=== PATIENT | female | born 2000 | race Caucasian/White ===

== ENCOUNTER 2019-02-11 16:43 | Observation (INO) ==
--- NOTE | 2019-02-11 17:30 | Emergency Department Note ---
Disposition Clinical Impression: Altered mental status Qualifiers: Altered mental status type: unspecified Qualified Code(s): R41.82 - Altered mental status, unspecified Disposition: Admitted As Inpatient Condition: Good Time of Disposition: 21:53 Neuro HPI - General Chief Complaint: ED Neuro Symptoms/Deficit Stated Complaint: Neuro symptoms LKN 1620 Time Seen by Provider: 02/11/19 16:56 Source: patient Mode of arrival: other Limitations: no limitations Nursing Notes Reviewed: Yes Vital Signs Reviewed: Yes - History of Present Illness HPI Narrative: 18F states that she was at work at approx 1630 and states that she felt like she was having word finding difficulty and could not get her words out. She is also complaining of decreased sensation on the right side of her face, her right side of her body. She also complains of right arm and leg weakness. She states that she can follow commands, but will take several seconds to follow commands. She can answer questions but sometimes it takes multiple prompts. Additionally, there are times when she can talk normally without any hesitation. She reported to the numerical analysis group manager that she is "extremely stressed" and that her whole life is "nothing but stress." She also reported constant diarrhea. - Related Data Home Medications: Home Medications Medication Instructions Recorded Confirmed Nexplanon 01/07/18 Sertraline [Zoloft] 100 mg PO DAILY 01/07/18 02/11/19 Phentermine HCl [Adipex-P] 37.5 mg PO DAILY 02/11/19 02/11/19 Previous Rx's Medication Instructions Recorded Meclizine HCl [Bonine] 25 mg PO Q8H PRN #21 tab.chew 02/05/18 Allergies/Adverse Reactions: Allergies Allergy/AdvReac Type Severity Reaction Status Date / Time No Known Allergies Allergy Verified 02/11/19 20:18 Limitations: ROS unobtainable due to patients medical condition Past Medical History - Past Medical History Medical history: Reports: asthma Surgical history: Reports: other Psychiatric history: Reports: anxiety, depression COMMERCIAL OR INSTITUTIONAL CLEANER history: Reports: no COMMERCIAL OR INSTITUTIONAL CLEANER history - Social History Smoking Status: Never smoker Smokeless Tobacco Status: No Alcohol use: Reports: none Drug use: Reports: none Physical Exam General: Pt appears anxious and tearful. She can sometimes converse freely and other times has halting speech. Head: atraumatic, normocephalic. ENT: No conjunctival injection, no scleral icterus. PERRLA. EOMI. Oropharynx non- erythematous. mucous membranes moist. Neuro: Pt reports decreased right sided facial sensation, decreased right arm and leg sensation. She cannot keep her right arm lifted, cannot keep her right arm lifted. Her pupils are equal and reactive. She cannot follow my finger. She can read words off my phone screen. She can repeat some words after me with multiple prompts. Initial NIH 6. Pulm: Lungs CTAB A/P. No wheezes, rales, ronchi. Cardio: RRR no m/r/g. Chest not tender to palpation. Abd: Soft, non-distended. Normoactive bowel sounds. Non-tender to palpation. No guarding. Non rigid. Extremities: Radial pulses 2+ andreas, dorsalis pedis/posterior tibialis 2+ andreas. No LE edema. No cyanosis, clubbing. Skin: warm, dry, intact. No rashes. Psych: Appears anxious. Unable to assess the rest of her mental status as she is difficult to communicate with. - General Limitations: no limitations General appearance: alert Course - Consultations Consultation #1: Radiologist states CT head is negative for acute bleed. Time: 17:27 Consultation #2: Spoke with Dr. Noel from [facility] that reports he does not think this is a stroke, thinks it is more stress related. He still recommended CTA of her head. Will order. Cancelled stroke alert. Time: 17:58 Vital Signs Temperature 98.7 F 02/11/19 16:49 Pulse Rate 84 02/11/19 16:49 Respiratory Rate 16 02/11/19 16:49 Blood Pressure 142/86 02/11/19 16:49 O2 Sat by Pulse Oximetry 100 02/11/19 16:49 Temperature 98.7 F 02/11/19 16:54 Pulse Rate 75 02/11/19 21:31 Respiratory Rate 19 02/11/19 21:31 Blood Pressure 123/84 02/11/19 21:31 O2 Sat by Pulse Oximetry 98 02/11/19 21:31 Oxygen Delivery Oxygen Delivery Room Air Neuro Symptoms/Deficit - MDM Narrative Medical decision making narrative: 18F with Pmhx of anxiety/depression that reports being at work and suddenly feeling like she could not get her words out at around 1600 today. She is having difficulty speaking intermittently, but then can speak in full sentences without difficulty. When you ask her to do something, she will pause for a long time - sometimes up to a minute - and will then be able to do whatever is asked of her. She will even say "Hold on". Stroke alert was called in order to expedite the workup and for concern of possible stroke given initial NIH of 6. Stroke alert was then cancelled after [facility] states that they think this may be related to stress, but recommended a CTA and full neuro workup. Will admit to hospitalist once CTA of Head/Neck is available. 2151: CTA of head/neck did not show any acute intracranial findings. Pt was admitted to the hospitalist for further workup of her neurological complaint. Dr. Beard accepted the patient to his service. Results of the workup including any imaging and/or labwork was shared with the patient at bedside. Patient was given an opportunity to ask questions at bedside and all of their concerns were addressed. Patient verbalized understanding and agreement with plan of care. Pt remained stable while in the department. - Medical Records Medical records reviewed: Yes I reviewed the patient's medical records. - Lab Data Lab results reviewed: Yes I reviewed the patient's lab results. Result diagrams: 02/11/19 17:19 02/12/19 06:55 Lab Results 02/11/19 02/11/19 02/11/19 Range/Units 17:19 17:19 17:19 WBC 7.9 (4.3-11.1) K/mcL RBC 4.43 (3.82-4.97) M/mcL Hgb 13.4 (11.5-15.4) g/dL Hct 39.1 (35.3-44.9) % MCV 88.3 (83.0-100.0) fL MCH 30.2 (28.0-33.3) pg MCHC 34.3 (31.6-35.5) g/dL RDW 12.0 (11.5-14.5) % Plt Count 219 (140-400) K/mcL MPV 9.9 (9.4-12.4) fL PT 11.7 (9.4-12.1) Seconds INR 1.0 APTT 32.8 (26.0-36.0) Seconds Sodium 138 (136-145) mEq/L Potassium 3.7 (3.5-5.1) mEq/L Chloride 103 (98-107) mEq/L Carbon Dioxide 23 (23-29) mEq/L BUN 10 (6-20) mg/dL Creatinine 0.76 (0.60-1.20) mg/dL Est GFR ( Amer) > 60 (> 60) Est GFR (Non-Af Amer) > 60 (> 60) BUN/Creatinine Ratio 13 (6-26) Glucose 97 (70-105) mg/dL Calculated Osmolality 285 (280-300) Calcium 9.8 (8.6-10.3) mg/dL Troponin I < 0.03 (< 0.04) ng/mL Urine Color (Yellow) Urine Clarity (Clear) Urine pH (5.0-8.0) pH Units Ur Specific [place] (1.010-1.025) Urine Protein (Neg-Trace) mg/dL Urine Glucose (UA) (Normal) mg/dL Urine Ketones (Negative) mg/dL Urine Blood (Negative) Urine Nitrite (Negative) Urine Bilirubin (Negative) Urine Urobilinogen (Normal) mg/dL Ur Leukocyte Esterase (Negative) Urine Microscopic RBC (0-3) per hpf Urine Microscopic WBC (0-3) per hpf Ur Squamous Epith Cells (None-Few) per lpf Urine Bacteria (None-Few) per hpf Hyaline Casts (None-Few) per lpf Ur Culture Indicated? (NO) Urine Test (Negative) Salicylates < 2.5 L (15.0-30.0) mg/dL Urine Opiates Screen (Qnvflh=422) ng/mL Ur Buprenorphine Scrn (Cutoff=5) ng/mL Acetaminophen < 10 L (10-20) mcg/mL Ur Barbiturates Screen (Welazo=584) ng/mL Ur Phencyclidine Scrn (Cutoff=25) ng/mL Ur Amphetamines Screen (Sfifdo=2338) ng/mL U Benzodiazepines Scrn (Lhjwvm=302) ng/mL Urine Cocaine Screen (Cutoff= 300) ng/mL U Marijuana (THC) Screen (Cutoff = 50) ng/mL Ur Drug Screen Interp Ethyl Alcohol < 10 (Less than 10) mg/dL 02/11/19 02/11/19 02/11/19 Range/Units 18:46 18:47 18:47 WBC (4.3-11.1) K/mcL RBC (3.82-4.97) M/mcL Hgb (11.5-15.4) g/dL Hct (35.3-44.9) % MCV (83.0-100.0) fL MCH (28.0-33.3) pg MCHC (31.6-35.5) g/dL RDW (11.5-14.5) % Plt Count (140-400) K/mcL MPV (9.4-12.4) fL PT (9.4-12.1) Seconds INR APTT (26.0-36.0) Seconds Sodium (136-145) mEq/L Potassium (3.5-5.1) mEq/L Chloride (98-107) mEq/L Carbon Dioxide (23-29) mEq/L BUN (6-20) mg/dL Creatinine (0.60-1.20) mg/dL Est GFR ( Amer) (> 60) Est GFR (Non-Af Amer) (> 60) BUN/Creatinine Ratio (6-26) Glucose (70-105) mg/dL Calculated Osmolality (280-300) Calcium (8.6-10.3) mg/dL Troponin I (< 0.04) ng/mL Urine Color Yellow (Yellow) Urine Clarity Slightly Hazy (Clear) Urine pH 6.0 (5.0-8.0) pH Units Ur Specific [place] 1.012 (1.010-1.025) Urine Protein Negative (Neg-Trace) mg/dL Urine Glucose (UA) Normal (Normal) mg/dL Urine Ketones Negative (Negative) mg/dL Urine Blood Small H (Negative) Urine Nitrite Negative (Negative) Urine Bilirubin Negative (Negative) Urine Urobilinogen Normal (Normal) mg/dL Ur Leukocyte Esterase Small H (Negative) Urine Microscopic RBC 5-15 H (0-3) per hpf Urine Microscopic WBC 5-15 H (0-3) per hpf Ur Squamous Epith Cells Many H (None-Few) per lpf Urine Bacteria None Seen (None-Few) per hpf Hyaline Casts None Seen (None-Few) per lpf Ur Culture Indicated? YES A (NO) Urine Test Negative (Negative) Salicylates (15.0-30.0) mg/dL Urine Opiates Screen Negative (Tyiyef=856) ng/mL Ur Buprenorphine Scrn Negative (Cutoff=5) ng/mL Acetaminophen (10-20) mcg/mL Ur Barbiturates Screen Negative (Nsydsd=707) ng/mL Ur Phencyclidine Scrn Negative (Cutoff=25) ng/mL Ur Amphetamines Screen Positive H (Yjkuao=4484) ng/mL U Benzodiazepines Scrn Negative (Vskwxk=045) ng/mL Urine Cocaine Screen Negative (Cutoff= 300) ng/mL U Marijuana (THC) Screen Negative (Cutoff = 50) ng/mL Ur Drug Screen Interp See Below Ethyl Alcohol (Less than 10) mg/dL - Radiology Data Radiology results reviewed: Yes I reviewed the patient's radiology results. Head CT 02/11/19 17:10 IMPRESSION: No acute intracranial abnormality. Results of this examination were verbally communicated to Latesha Zurita at 5:29 p.m. on 02/11/2019. D/ / Wander Cobos MD / Wander Cobos MD Interpreting Provider: aWnder Cobos MD Head CTA 02/11/19 17:56 IMPRESSION: Negative for hemodynamic stenosis or occlusion involving the cervical arterial vasculature or the intracranial arterial circulation.. D/ / Joaquin Kulkarni / Joaquin Kulkarni Interpreting Provider: Joaquin Kulkarni Neck CTA 02/11/19 17:56 IMPRESSION: Negative for hemodynamic stenosis or occlusion involving the cervical arterial vasculature or the intracranial arterial circulation.. D/ / Joaquin Kulkarni / Joaquin Kulkarni Interpreting Provider: Joaquin Kulkarni - EKG Data EKG attestation: Yes I reviewed and interpreted this EKG. EKG results narrative: Heart rate 79, rhythm sinus, axis normal. Intervals within normal limits. RSR pattern seen in lead V1 and V2 without prolongation of the QRS. No ST segment elevation or depression. No old EKG available for comparison. NIH Stroke Scale - Level of Consciousness LOC: Alert - LOC Questions LOC Questions: Answers both correctly - LOC Commands LOC Commands: Performs both correctly - Best Gaze Best Gaze: Normal - Visual Visual: No visual loss - Facial Palsy Facial Palsy: Normal - Motor Arms Motor Arm-Left: No drift for 10 seconds Motor Arm-Right: Some effort against gravity, limb drifts to bed - Motor Legs Motor Leg-Left: No drift for 5 seconds Motor Leg-Right: No effort against gravity, limb falls to bed, some movement - Limb Ataxia Limb Ataxia: Absent of affected limb too weak to perform exam - Sensory Sensory: Mild to moderate loss, "not as sharp" - Best Language Best Language: No aphasia - Dysarthria Dysarthria: Normal - Extinction and Inattention Extinction and Inattention: Normal - NIHSS Total Score NIHSS Total Score: 6 TPA Checklist - LKW: 3-4.5 hrs Add. Warnings/Precautions Patient/family understanding: The patient/family members have been counseled and understood the risk, benefit, and alternatives of treatment. Attestation Statement - Attestation Attestation: I, Leif Santos, examined this patient and my medical decision-making was reviewed with the [employer]/PA/Advanced Practice Nurse/Resident Physician. I agree with the documented findings, disposition and treatment plan as described except to the extent set forth below. 18-year-old female brought to the emergency department for evaluation of possible CVA. Patient states she has difficulty with her speech and has weakness of the right upper and right lower extremity. Patient states symptoms started about 20-30 minutes prior to arrival. Patient denies illicit drug use, alcohol use or recent trauma. No history of seizure disorder. On initial physical exam the patient is very anxious and dramatic when giving the history. At times she has difficulty finding words during the interview but at other she was able to speak clearly and without hesitation. Patient has 4 out of 5 weakness of the right upper extremity compared to the left. Patient was unable to move the right lower extremity to gravity however I have concerns that there is a lack of effort during the exam as she did not have pressure to the contralateral heel to the bed during the exam. A stroke alert was initiated, CT of the head was negative, [facility] did not recommend TPA. Patient will be admitted to the hospital for further care and evaluation.
[2019-02-11 17:44] LABS: Hematocrit 39.1 % (35.3-44.9); Hemoglobin 13.4 g/dL (11.5-15.4); Mean Corpuscular HGB Conc 34.3 g/dL (31.6-35.5); Mean Corpuscular Hemoglobin 30.2 pg (28.0-33.3); Mean Corpuscular Volume 88.3 fL (83.0-100.0); Mean Platelet Volume 9.9 fL (9.4-12.4); Platelet Count 219 K/mcL (140-400); Red Blood Count 4.43 M/mcL (3.82-4.97); White Blood Count 7.9 K/mcL (4.3-11.1)
[2019-02-11 17:46] LABS: Prothrombin Time 11.7 Seconds (9.4-12.1)
[2019-02-11 17:49] LABS: Activated Partial Thrombo Time 32.8 Seconds (26.0-36.0)
[2019-02-11] MEDS ORDERED: Isovue-370 500 ML BOTTLE IVP ONE (17:56)
[2019-02-11 18:03] LABS: BUN/Creatinine Ratio 13 (6-26); Blood Urea Nitrogen 10 mg/dL (6-20); Calcium 9.8 mg/dL (8.6-10.3); Carbon Dioxide 23 mEq/L (23-29); Chloride 103 mEq/L (98-107); Ethanol < 10 mg/dL (Less than 10); Glucose 97 mg/dL (70-105); Osmolality,Calculated 285 (280-300); Potassium 3.7 mEq/L (3.5-5.1); Sodium 138 mEq/L (136-145); Troponin I < 0.03 ng/mL (< 0.04); eGFR For African Americans > 60 (> 60); eGFR For Non-African Americans > 60 (> 60)
[2019-02-11 18:16] LABS: Acetaminophen < 10 mcg/mL (10-20); Salicylate < 2.5 mg/dL (15.0-30.0)
[2019-02-11 19:00] LABS: Bilirubin,Urine Negative (Negative); Blood,Urine Small (Negative); Color,Urine Yellow (Yellow); Glucose,Urine (UA) Normal (Normal); Ketones,Urine Negative (Negative); Leukocyte Esterase,Urine Small (Negative); Nitrite,Urine Negative (Negative); Protein,Urine Negative (Neg-Trace); Specific Gravity,Urine 1.012 (1.010-1.025); Urobilinogen,Urine Normal (Normal)
[2019-02-11 19:01] LABS: Bacteria,Urine None Seen per hpf (None-Few); Hyaline Casts,Urine None Seen per lpf (None-Few); Squamous Epithelial Cell,Urine Many per lpf (None-Few)
[2019-02-11 19:06] LABS: Clarity,Urine Slightly Hazy (Clear)
[2019-02-11 19:15] LABS: Amphetamine Screen,Urine Positive ng/mL (Cutoff=1000); Barbiturate Screen,Urine Negative ng/mL (Cutoff=200); Benzodiazepines Screen,Urine Negative ng/mL (Cutoff=200); Cannabinoid Screen,Urine Negative ng/mL (Cutoff = 50); Cocaine Screen,Urine Negative ng/mL (Cutoff= 300); Opiate Screen,Urine Negative ng/mL (Cutoff=300); Phencyclidine Screen,Urine Negative ng/mL (Cutoff=25)
--- NOTE | 2019-02-11 22:13 | Internal Med History&Physical ---
Date of Encounter: 02/12/19 Time of Encounter: 22:13 Internal Medicine - H&P: HPI Chief complaint: Stroke - like Sx History of present illness: Ms. Archer is a 18 year old female with a past medical history of asthma, anxiety and depression who presented to the ED because of strokelike symptoms. 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 She states that around 4:30 this afternoon she was starting to feel weak and lightheaded. She noticed some tingling in her hands. She initially thought that her blood sugar may have been low and stopped to eat a snack. She walked into the nurses station and states that she "zoned out" and could not speak when one of the nurses was asking if she was okay, despite being able to hear her. She was ta stephanie down to the ED and shortly thereafter began having difficulty moving her right upper and lower extremities which she states felt heavy. Patient subsequently developed a headache which was predominantly left-sided. Headache appear to be aggravated by light and loud noises. She reports she has a history of migraines, however stated that this presentation was different. She reported to the operations support representative that she is "extremely stressed" and that her whole life is "nothing but stress." She also reported constant diarrhea but states that this has been chronic. No reports of neck stiffness or blurry vision. Denied chest pain or shortness of breath. Denies any drug use. No reports of recent illness. Based on a initial NIH of 6, stroke alert was called and then canceled shortly after neurology evaluated the patient and felt symptoms were more likely related to stress. CTA of the head and neck and further workup was recommended. CTA showed no acute intracranial findings. Initial vitals and laboratory workup were unremarkable. Urine toxicology were positive for amphetamines. When tyler clinton was asked about this, she was adamant that she does not use any other drugs aside from her prescription medications. Patient admitted for further evaluation and stroke rule out. Past Med Surg Social Fam HX - Past Medical History Medical history: asthma Psychiatric history: anxiety, depression - Past Surgical History Surgical History: other Additional surgical history: right side of neck lymph node biopsy - Social History Smoking Status: Never smoker Smokeless Tobacco Status: No Alcohol use: none Drug use: none - Family History Mother Hx Family Cancer: Yes (kidney ca) Father Hx Family Endocrine Disorder: Yes (dm) Internal Medicine - H&P: Meds Etonogestrel [Nexplanon] 68 mg ONCE 01/07/18 [History] Sertraline [Zoloft] 100 mg PO DAILY 01/07/18 [History] Meclizine HCl [Bonine] 25 mg PO Q8H PRN #21 tab.chew 02/05/18 [Rx] Phentermine HCl [Adipex-P] 37.5 mg PO DAILY 02/11/19 [History] Allergy/AdvReac Type Severity Reaction Status Date / Time No Known Allergies Allergy Verified 02/11/19 20:18 All Systems PM: A 10-system review of systems was performed and is negative for pertinent findings except as documented above in the HPI. - Constitutional Constitutional: no chills, no fever(s), no night sweats - EENT Eyes: no change in vision, no discharge, no pain, no photophobia Ears: no ear discharge, no ear pain, no tinnitus Nose, mouth and throat: no dysphagia, no nasal discharge, no neck pain, no sore throat - Cardiovascular Cardiovascular ROS IM: no chest pain, no diaphoresis, no dyspnea, no lightheadedness, no palpitations, no syncope - Respiratory Respiratory: no cough, no dyspnea, no wheezing, no excessive phlegm production - Gastrointestinal Gastrointestinal: no abdominal pain, no diarrhea, no hematemesis, no hematochezia, no melena, no nausea, no vomiting - Genitourinary Genitourinary: no change in urinary stream, no dysuria, no flank pain, no hematuria - Musculoskeletal Musculoskeletal ROS IM: no numbness, no tingling - Integumentary Integumentary IM: no rash, no unusual bruising - Neurological Neurological ROS: no confusion, no convulsions, no focal weakness, no numbness, no tingling, no tremor(s) - Hematologic/Lymphatic Hematologic/Lymphatic: no easy bruising - Constitutional Vitals: Temp Pulse Resp BP Pulse Ox 98.7 F 75 19 123/84 98 02/11/19 16:54 02/11/19 21:31 02/11/19 21:31 02/11/19 21:31 02/11/19 21:31 Exam: General: Alert and oriented 3 Skin:Normal color, no rash, no lesions. HEENT:EOM, pupils equal, round and reactive. Cardiovascular:Normal S1 & S2, no rubs, murmurs or gallops. No JVD. Pulse regular. Lungs:Normal breath sounds, no wheezes or crackles. Abdomen:Soft, non-tender, no rigidity. Extremities:No deformity, no edema or tenderness, no joint swelling or clubbing. Neurological:Normal cognition and motor skills. Cranial nerves II through XII intact. Mild right-sided pronator drift. Muscle strength 4 out of 5 on the right in the upper or lower extremities; 5 out of 5 in the upper and lower extremities on the left Pulses:Carotid and radial pulses normal +2. Rest of the physical exam is non contributory Internal Med - H&P Results - Labs CBC & Chem 7: 02/11/19 17:19 02/12/19 06:55 Labs: Short CBC 02/11/19 Range/Units 17:19 WBC 7.9 (4.3-11.1) K/mcL Hgb 13.4 (11.5-15.4) g/dL Hct 39.1 (35.3-44.9) % Plt Count 219 (140-400) K/mcL BMP 02/11/19 17:19 Sodium 138 Potassium 3.7 Chloride 103 Carbon Dioxide 23 BUN 10 Creatinine 0.76 Glucose 97 Calcium 9.8 Cardiac Enzymes 02/11/19 Range/Units 17:19 Troponin I < 0.03 (< 0.04) ng/mL Urine 02/11/19 Range/Units 18:46 Urine Color Yellow (Yellow) Urine Clarity Slightly Hazy (Clear) Urine pH 6.0 (5.0-8.0) pH Units Ur Specific [place] 1.012 (1.010-1.025) Urine Protein Negative (Neg-Trace) mg/dL Urine Glucose (UA) Normal (Normal) mg/dL - Impressions ITS Impressions Head CT 02/11/19 17:10 IMPRESSION: No acute intracranial abnormality. Results of this examination were verbally communicated to Latesha Zurita at 5:29 p.m. on 02/11/2019. D/ / Wander Cobos MD / Wander Cobos MD Interpreting Provider: Wander Cobos MD Head CTA 02/11/19 17:56 IMPRESSION: Negative for hemodynamic stenosis or occlusion involving the cervical arterial vasculature or the intracranial arterial circulation.. D/ / Joaquin Kulkarni / Joaquin Kulkarni Interpreting Provider: Joaquin Kulkarni Neck CTA 02/11/19 17:56 IMPRESSION: Negative for hemodynamic stenosis or occlusion involving the cervical arterial vasculature or the intracranial arterial circulation.. D/ / Joaquin Kulkarni / Joaquin Kulkarni Interpreting Provider: Joaquin Kulkarni - Assessment and Plan (1) Stroke-like symptoms Current Visit: Yes Status: Acute Assessment and plan: 18-year-old female with past medical history of anxiety and migraine presenting with strokelike symptoms exhibited by aphasia and right upper and lower extremity weakness. -Vitals and laboratory workup unremarkable; no evidence of fever, leukocytosis. -patient did have right upper lower extremity weakness on physical exam relative to her left -Patient urine toxicology positive for amphetamines though patient adamantly denies any illicit drug use and question as to whether this could be secondary to her phentermine which she takes her weight loss. -CT of the head and neck was unremarkable -Low likelihood for CVA; given migraine history may be secondary to complex migraine versus stress. MS may be another possibility Plan: -Telemetry -Neurochecks -Lipid panel; A1c -One-time dose of aspirin -MRI in the a.m. -Consider Neurology consult (2) Anxiety Current Visit: Yes Status: Acute Assessment and plan: Patient reporting she has been under a lot of stress recently. (3) Depression Current Visit: Yes Status: Acute Assessment and plan: Continue sertraline Qualifiers: Depression Type: unspecified Qualified Code(s): F32.9 - Major depressive disorder, single episode, unspecified - Time Spent With Patient Total time spent is greater than 50% in coordination of care (as documented) at patient's floor/unit and/or counseling patient:
[2019-02-12] MEDS: traMADol 50 MG TABLET PO PRN ×2 (00:28→08:09)
[2019-02-12] MEDS ORDERED: 0.9 % Sodium Chloride 1,000 ML IVC SCH (05:45)
[2019-02-12 07:24] LABS: Alanine Aminotransferase 14 Units/L (7-52); Albumin 4.2 g/dL (3.5-5.7); Albumin/Globulin Ratio 1.8 (1.1-2.2); Alkaline Phosphatase 57 Units/L (34-104); Aspartate Amino Transferase 11 Units/L (13-39); BUN/Creatinine Ratio 12 (6-26); Bilirubin,Total 0.7 mg/dL (0.3-1.0); Blood Urea Nitrogen 8 mg/dL (6-20); Calcium 9.2 mg/dL (8.6-10.3); Carbon Dioxide 26 mEq/L (23-29); Chloride 104 mEq/L (98-107); Chol/HDL Ratio 3.9 (0-4.9); Cholesterol 158 mg/dL (< 200); Globulin 2.3 g/dL (2.4-3.5); Glucose 99 mg/dL (70-105); HDL Cholesterol 41 mg/dL (40-59); LDL Cholesterol,Calculated 104 mg/dL (0-99); Osmolality,Calculated 286 (280-300); Potassium 3.8 mEq/L (3.5-5.1); Sodium 139 mEq/L (136-145); Total Protein 6.5 g/dL (6.4-8.9); Triglycerides 66 mg/dL (< 150); eGFR For African Americans > 60 (> 60); eGFR For Non-African Americans > 60 (> 60)
[2019-02-12] MEDS ORDERED: Aspirin 325 MG TABLET PO ONE (07:59)
[2019-02-12 08:09] LABS: Estimated Average Glucose 108 mg/dl
[2019-02-12] MEDS ORDERED: Ketorolac 15 MG/ML VIAL IVP ONE (09:06)
[2019-02-12] MEDS ORDERED: Promethazine 12.5 MG in 0.9 % Sodium Chloride 50 ML IVPB PRN ×2 (09:06→09:34)
[2019-02-12] MEDS ORDERED: Prochlorperazine 10 MG/2 ML VIAL IVP ONE (09:06)
[2019-02-12] MEDS ORDERED: Ketorolac 15 MG/ML VIAL IVP PRN (09:07)
--- NOTE | 2019-02-12 11:25 | Neurology - Consult Note ---
Date of Encounter: 02/12/19 Time of Encounter: 11:23 Assessment and Plan (1) Altered mental status Current Visit: Yes Status: Acute I agree that this is likely not related to a primary HEAD OF MARKETING ADOMETRY pathology. There may be a component of migraine headache that can be aggravated by increasing stress. She currently has nonfocal neurological examination and imaging studies are essentially normal studies including CT angiogram of the neck and head as well as MRI of the brain and cervical spine. Patient may benefit from counseling regarding her increasing stress as an outpatient basis. From a neurology perspective, patient can be discharged home. We will sign off at this time please call if any questions. Qualifiers: Altered mental status type: unspecified Qualified Code(s): R41.82 - Altered mental status, unspecified History of Present Illness Chief complaint: altered mental status HPI: Ms. Archer is a 18 year old female with a past medical history significant for anxiety depression, obesity, mild intermittent asthma who developed an episode of altered mental status followed by headaches. Patient admits to significant stress surrounding her personal life and her work. Patient developed altered mental status at work followed by a throbbing headache. Initially she reported lightheadedness, numbness tingling involving her hands bilaterally and then an episode where she could hear but not able to talk. Patient was able to maintain her posture during the spell. This was followed by a headache. Patient does have history of intermittent migraine headaches but usually not associated with current symptoms. Initial CT of the head showed no acute intracranial abnormality. At the time of this interview, the patient just completed MRI of the brain and the cervical spine. She states that she feels extremely tired however, no other focal neurological deficits were noted. MRI of the brain and cervical spine images are reviewed and no significant abnormality identified. Past Med Surg Social Fam HX - Past Medical History Medical history: asthma Psychiatric history: anxiety, depression - Past Surgical History Surgical History: other Additional surgical history: right side of neck lymph node biopsy - Social History Smoking Status: Never smoker Smokeless Tobacco Status: No Alcohol use: none Drug use: none - Family History Mother Hx Family Cancer: Yes (kidney ca) Father Hx Family Endocrine Disorder: Yes (dm) Medications and Allergies Nexplanon 01/07/18 [History] Sertraline [Zoloft] 100 mg PO DAILY 01/07/18 [History] Meclizine HCl [Bonine] 25 mg PO Q8H PRN #21 tab.chew 02/05/18 [Rx] Phentermine HCl [Adipex-P] 37.5 mg PO DAILY 02/11/19 [History] Allergy/AdvReac Type Severity Reaction Status Date / Time No Known Allergies Allergy Verified 02/11/19 20:18 All Systems: The remainder of the systems were reviewed and are negative - Constitutional Constitutional ROS IM: as per HPI - Nose, Mouth, Throat Nose, mouth and throat: abnormal hearing (no), bleeding gums (no), change in voice (no) - Cardiovascular Cardiovascular ROS IM: chest pain (no), chest pain at rest (no) - Respiratory Respiratory IM: cough (no), dyspnea (no), hemoptysis (no) - Gastrointestinal Gastrointestinal: abdominal pain (no), belching (no), bloating (no), change in bowel habits (no) - Genitourinary Genitourinary ROS: abnormal meses (no), abnormal vaginal bleeding (no) - Musculoskeletal Musculoskeletal ROS IM: abnormal gait (no) - Neurological Neurological ROS: abnormal gait (no), abnormal hearing (no), abnormal movements (no), abnormal speech (no), confusion (yes), headache(s) (yes) - Psychiatric Psychiatric general PM: abnormal sleep pattern (no), anhedonia (no), auditory hallucinations (no), confusion (yes) - Endocrine Endocrine IM: change in body appearance (no) Physical Examination - Vital Signs Vital Signs: Initial Vital Signs Temp Pulse Resp BP Pulse Ox 98.7 F 84 16 142/86 100 02/11/19 16:49 02/11/19 16:49 02/11/19 16:49 02/11/19 16:49 02/11/19 16:49 Results - Laboratory Findings CBC and BMP: 02/11/19 17:19 02/12/19 06:55 Abnormal lab findings: Abnormal lab results AST 11 Units/L (13-39) L 02/12/19 06:55 Globulin 2.3 g/dL (2.4-3.5) L 02/12/19 06:55 LDL Cholesterol, Calc 104 mg/dL (0-99) H 02/12/19 06:55 Urine Blood Small (Negative) H 02/11/19 18:46 Ur Leukocyte Esterase Small (Negative) H 02/11/19 18:46 Urine Microscopic RBC 5-15 per hpf (0-3) H 02/11/19 18:46 Urine Microscopic WBC 5-15 per hpf (0-3) H 02/11/19 18:46 Ur Squamous Epith Cells Many per lpf (None-Few) H 02/11/19 18:46 Ur Culture Indicated? YES (NO) A 02/11/19 18:46 Salicylates < 2.5 mg/dL (15.0-30.0) L 02/11/19 17:19 Acetaminophen < 10 mcg/mL (10-20) L 02/11/19 17:19 Ur Amphetamines Screen Positive ng/mL (Iwvorh=[id number]) H 02/11/19 18:47 - Diagnostic Findings Additional findings: CT OF THE HEAD WITHOUT CONTRAST - STROKE ALERT 02/11/2019 5:25 pm TECHNIQUE: CT of the head was performed without the administration of intravenous contrast. Dose modulation, iterative reconstruction, and/or weight based adjustment of the mA/kV was utilized to reduce the radiation dose to as low as reasonably achievable. COMPARISON: 07/25/2017 HISTORY: ORDERING SYSTEM PROVIDED HISTORY: stroke alert Difficulty with speech and right-sided weakness. Acute symptoms. Initial study. FINDINGS: BRAIN/VENTRICLES: There is no acute intracranial hemorrhage, mass effect or midline shift. No abnormal extra-axial fluid collection. The dixon-white differentiation is maintained without evidence of an acute infarct. There is no evidence of hydrocephalus. ORBITS: The visualized portion of the orbits demonstrate no acute abnormality. SINUSES: The visualized paranasal sinuses and mastoid air cells demonstrate no acute abnormality. SOFT TISSUES/SKULL: No acute abnormality of the visualized skull or soft tissues. CT/CT stroke alert head wo con IMPRESSION: No acute intracranial abnormality. Results of this examination were verbally communicated to Latesha Zurita at 5:29 p.m. on 02/11/2019. D/ / Wander Cobos MD / Wander Cobos MD Interpreting Provider: Wander Cobos MD OF THE HEAD WITHOUT AND WITH CONTRAST; CTA OF THE NECK 02/11/2019 7:41 pm; 02/11/2019 7:43 pm: TECHNIQUE: CTA of the head/brain was performed without and with the administration of intravenous contrast. Multiplanar reformatted images are provided for review. MIP images are provided for review. Dose modulation, iterative reconstruction, and/or weight based adjustment of the mA/kV was utilized to reduce the radiation dose to as low as reasonably achievable.; CTA of the neck was performed with the administration of intravenous contrast. Multiplanar reformatted images are provided for review. MIP images are provided for review. Stenosis of the internal carotid arteries measured using NASCET criteria. Dose modulation, iterative reconstruction, and/or weight based adjustment of the mA/kV was utilized to reduce the radiation dose to as low as reasonably achievable. COMPARISON: CT head 02/11/2019 HISTORY: ORDERING SYSTEM PROVIDED HISTORY: sudden onset neuro deficits with neg CT W/O 75 ml of isovue 370 ; ORDERING SYSTEM PROVIDED HISTORY: STROKE LIKE SYMPTOMS 75 ml of isovue 370 FINDINGS: CTA NECK: AORTIC ARCH/ARCH VESSELS: There is a normal branch pattern of the aortic arch. No significant stenosis is seen of the innominate artery or subclavian arteries. CAROTID ARTERIES: The common carotid arteries are normal in appearance without evidence of a flow limiting stenosis. The internal carotid arteries are normal in appearance without evidence of a flow limiting stenosis by NASCET criteria. No dissection or arterial injury is seen. VERTEBRAL ARTERIES: The vertebral arteries both arise from the subclavian arteries and are normal in caliber without evidence of flow limiting stenosis or dissection. SOFT TISSUES: The lung apices are clear. No cervical or superior mediastinal lymphadenopathy. The visualized portion of the larynx and pharynx appear unremarkable. The parotid, submandibular and thyroid glands demonstrate no acute abnormality. BONES: The visualized osseous structures appear unremarkable. CTA HEAD: ANTERIOR CIRCULATION: The internal carotid arteries are normal in course and caliber without focal stenosis. The anterior cerebral and middle cerebral arteries demonstrate no focal stenosis. POSTERIOR CIRCULATION: The posterior cerebral arteries demonstrate no focal stenosis. The vertebral and basilar arteries appear unremarkable. BRAIN: No mass effect or midline shift. No abnormal extra-axial fluid collection. The dixon-white differentiation appears grossly maintained. CT/CT angio head IMPRESSION: Negative for hemodynamic stenosis or occlusion involving the cervical arterial vasculature or the intracranial arterial circulation.. D/ / Joaquin Kulkarni / Joaquin Kulkarni Interpreting Provider: Joaquin Kulkarni Consult Discharge Plan - Plan Referrals: NONE,PCP [Primary Care Provider] -
--- NOTE | 2019-02-12 12:21 | Internal Med Progress Note ---
Hospitalist Progress Note - Encounter Date of Encounter: 02/12/19 Time of Encounter: 09:00 - Subjective Interval History: No acute events overnight - Exam Vitals: Temp Pulse Resp BP Pulse Ox 98.0 F 82 16 127/85 100 02/12/19 07:20 02/12/19 09:03 02/12/19 09:03 02/12/19 09:03 02/12/19 09:03 Exam: General appearance: Present: A&O X 3, no acute distress Head exam: Present: normocephalic Respiratory exam: Present: CTAB. Absent: accessory muscle use, rales, rhonchi, wheezes Cardiovascular exam: Present: RRR, +S1, +S2. Absent: diastolic murmur, gallop, rubs, systolic murmur GI/Abdominal exam: Soft, NT, ND, +BS Extremities exam: Absent: pedal edema Neurological exam: Demonstrates subjective right sided weaknes. Unclear if symptoms are real based on prior observation of her using her extremities per nursing staff - Assessment and Plan (1) Stroke-like symptoms Current Visit: Yes Status: Acute Assessment and Plan: 18-year-old female with past medical history of anxiety and migraine presenting with strokelike symptoms exhibited by aphasia and right upper and lower extremity weakness. Unclear etiology, may be secondary to migraine headaches/ stress. CT head and MRI head negative for stroke/ multiple sclerosis Will manage supportively for headaches and stress (2) Headache Current Visit: Yes Status: Acute Assessment and Plan: See #1. Rest, analgesia and supportive care. Patient also takes phentermine. A known side effect is headache (3) Anxiety Current Visit: Yes Status: Acute Assessment and Plan: Supportive mgmt (4) Depression Current Visit: Yes Status: Acute Assessment and Plan: Continue sertraline (5) DVT prophylaxis Current Visit: Yes Status: Acute Assessment and Plan: Heparin sc - Time Spent with Patient Total time spent is greater than 50% in coordination of care (as documented) at patient's floor/unit and/or counseling patient: Internal Medicine: Result - Labs CBC & Chem 7: 02/11/19 17:19 02/12/19 06:55 Labs: Short CBC 02/11/19 Range/Units 17:19 WBC 7.9 (4.3-11.1) K/mcL Hgb 13.4 (11.5-15.4) g/dL Hct 39.1 (35.3-44.9) % Plt Count 219 (140-400) K/mcL BMP 02/11/19 02/12/19 17:19 06:55 Sodium 138 139 Potassium 3.7 3.8 Chloride 103 104 Carbon Dioxide 23 26 BUN 10 8 Creatinine 0.76 0.67 Glucose 97 99 Calcium 9.8 9.2 Cardiac Enzymes 02/11/19 Range/Units 17:19 Troponin I < 0.03 (< 0.04) ng/mL Liver Function 02/12/19 Range/Units 06:55 Total Bilirubin 0.7 (0.3-1.0) mg/dL AST 11 L (13-39) Units/L ALT 14 (7-52) Units/L Alkaline Phosphatase 57 (34-104) Units/L Albumin 4.2 (3.5-5.7) g/dL Urine 02/11/19 Range/Units 18:46 Urine Color Yellow (Yellow) Urine Clarity Slightly Hazy (Clear) Urine pH 6.0 (5.0-8.0) pH Units Ur Specific [place] 1.012 (1.010-1.025) Urine Protein Negative (Neg-Trace) mg/dL Urine Glucose (UA) Normal (Normal) mg/dL - ABG Interpretation ABG results: PT/INR, D-dimer PT 11.7 Seconds (9.4-12.1) 02/11/19 17:19 - Impressions Impressions Head CT 02/11/19 17:10 IMPRESSION: No acute intracranial abnormality. Results of this examination were verbally communicated to Latesha Zurita at 5:29 p.m. on 02/11/2019. D/ / Wander Cobos MD / Wander Cobos MD Interpreting Provider: Wander Cobos MD Head CTA 02/11/19 17:56 IMPRESSION: Negative for hemodynamic stenosis or occlusion involving the cervical arterial vasculature or the intracranial arterial circulation.. D/ / Joaquin Kulkarni / Joaquin Kulkarni Interpreting Provider: Joaquin Kulkarni Neck CTA 02/11/19 17:56 IMPRESSION: Negative for hemodynamic stenosis or occlusion involving the cervical arterial vasculature or the intracranial arterial circulation.. D/ / Joaquin Kulkarni / Joaquin Kulkarni Interpreting Provider: Joaquin Kulkarni Consult Discharge Plan - Plan Referrals: NONE,PCP [Primary Care Provider] -
[2019-02-12] MEDS: cefTRIAXone 1,000 MG in Water for inj. (sterile) 10 ML IVP SCH (12:46)
[2019-02-12] MEDS ORDERED: Ipratropium/Albuterol Neb 3 ML IH PRN (13:38)
[2019-02-12] MEDS: *HR* Heparin 5,000 UNIT/ML VIAL SQ SCH (18:22)
[2019-02-13] MEDS: *HR* Heparin 5,000 UNIT/ML VIAL SQ SCH (05:17)
[2019-02-13] MEDS: cefTRIAXone 1,000 MG in Water for inj. (sterile) 10 ML IVP SCH (08:15)
[2019-02-13] MEDS: traMADol 50 MG TABLET PO PRN (08:20)
[2019-02-13 08:27] VITALS: BP 118/82
--- NOTE | 2019-02-13 08:34 | Discharge Summary ---
Date of Encounter: 02/13/19 Time of Encounter: 09:00 - Discharge Diagnosis (1) Stroke-like symptoms Priority: Primary Status: Acute Assessment and Plan: 18 year old female with a past medical history of asthma, anxiety and depression who presented to the ED because of strokelike symptoms. 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 She states that around 4:30 this afternoon she was starting to feel weak and lightheaded. She noticed some tingling in her hands. She initially thought that her blood sugar may have been low and stopped to eat a snack. She walked into the nurses station and states that she "zoned out" and could not speak when one of the nurses was asking if she was okay, despite being able to hear her. She was taken down to the ED and shortly thereafter began having difficulty moving her right upper and lower extremities which she states felt heavy. Patient subsequently developed a headache which was predominantly left-sided. Headache appear to be aggravated by light and loud noises. She reports she has a history of migraines, however stated that this presentation was different. She reported to the medical editor that she is "extremely stressed" and that her whole life is "nothing but stress." She was assessed with headache r/o stroke. She had a CT head and MR head done that showed no stroke or changes suggestive of multiple sclerosis. She improved on toradol for pain relief. She was counseled to f/u with her PCP prior to resuming phentermine use as this medication has a headaches side effect. She was discharged in a stable condition (2) Anxiety Priority: Primary Status: Acute (3) Depression Priority: Primary Status: Acute Qualifiers: Depression Type: unspecified Qualified Code(s): F32.9 - Major depressive disorder, single episode, unspecified Hospital course: Ms. Archer is a 18 year old female - Time Spent with Patient Total time spent providing and/or coordinating discharge services: - Discharge Medications Prescriptions: Continued Sertraline [Zoloft] 100 mg PO DAILY Etonogestrel [Nexplanon] 68 mg ONCE Meclizine HCl [Bonine] 25 mg PO Q8H PRN #21 tab.chew PRN Reason: dizzy Phentermine HCl [Adipex-P] 37.5 mg PO DAILY #0 Home Medications: Etonogestrel [Nexplanon] 68 mg ONCE 01/07/18 [History] Sertraline [Zoloft] 100 mg PO DAILY 01/07/18 [History] Meclizine HCl [Bonine] 25 mg PO Q8H PRN #21 tab.chew 02/05/18 [Rx] Phentermine HCl [Adipex-P] 37.5 mg PO DAILY #0 02/13/19 [Rx] Allergies/Adverse Reactions: Allergy/AdvReac Type Severity Reaction Status Date / Time No Known Allergies Allergy Verified 02/11/19 20:18 Date of admission: 02/11/19 21:46 Primary care physician: PCP NONE Consults: 02/12/19 08:40 Consult to Neurology [CONS] Routine Consulting Provider: Neurology [facility] Reason for Consult: migraine with stroke like symptoms Call Completed: No - Constitutional Vitals: Temp Pulse Resp BP Pulse Ox 98.3 F 94 18 118/82 98 02/13/19 08:26 02/13/19 08:26 02/13/19 08:26 02/13/19 08:26 02/13/19 08:26 Exam: General: Alert and oriented 3 Skin:Normal color, no rash, no lesions. HEENT:EOM, pupils equal, round and reactive. Cardiovascular:Normal S1 & S2, no rubs, murmurs or gallops. No JVD. Pulse regular. Lungs:Normal breath sounds, no wheezes or crackles. Abdomen:Soft, non-tender, no rigidity. Extremities:No deformity, no edema or tenderness, no joint swelling or clubbing. Neurological:Normal cognition and motor skills. Cranial nerves II through XII intact. Pulses:Carotid and radial pulses normal +2. Rest of the physical exam is non contributory - Patient Status Disposition: Home, Self-Care Condition: Good - Discharge Instructions Follow Up With: Epifanio Jimenez MD [Partnered Physician] - (Appointment has been requested. )
--- NOTE | 2019-02-15 10:53 | Electrocardiograph Report ---
[address] [address] Test Date: 2019-02-11 Pat Name: Maureen Archer Department: [id number] Room: 3B Gender: Adhesion Tester: : 2000 Requested By: Kanu Suresh Order Number: [id number] Reading MD: Nas Sahu Measurements Intervals [place] Rate: 79 P: 34 FL: 169 QRS: 32 QRSD: 92 T: 42 QT: 380 QTc: 436 Interpretive Statements Sinus rhythm Electronically Signed On 02-15-2019 10:52:18 EDT by Nas Sahu
== END 2019-02-13 09:57 | disposition home or self-care (01) ==
LOC: 3BNU 16:43 → EMEROOARM 16:43 → 3BNU 22:21
PROVIDERS: ADMIT Internal Medicine; ATTEND Student in an Organized Health Care Education/Training Program